=== PATIENT | female | born 1985 | race African-American/Black ===

== ENCOUNTER 2019-09-27 00:17 | Emergency (ER) | payer OTHER ==
[2019-09-27 00:40] LABS: Bacteria/HPF 1+ HPF (None Seen); Bilirubin Negative (Negative); Blood, Urine 1+ (Negative); Clarity Clear (Clear); Glucose, Urine (Dipstick) Normal (Negative); Leukocyte 75 Leu/uL (Negative); Nitrite Negative (Negative); Protein, Urine (Dipstick) 20 mg/dL (Neg-Trace)
[2019-09-27 01:10] LABS: #Basophils 0.1 thou/uL (0.0-0.2); #Eosinphils 0.8 thou/uL (0.0-0.7); #Lymphocytes 2.5 thou/uL (1.20-3.40); #Neutrophils 6.1 thou/uL (1.40-6.50); %Basophils 1.1 % (0.0-1.0); %Eosinophils 7.7 % (0.0-10.0); %Lymphocytes 23.5 % (21.0-51.0); %Monocytes 9.7 % (0.0-10.0); Mean Corpuscular HGB CONC 34.2 g/dL (32.0-36.0); Mean Corpuscular Hemoglobin 29.7 pg (27.0-31.0); Mean Corpuscular Volume 86.8 fL (78.0-98.0); Mean Platelet Volume 8.4 fL (7.4-10.4); Platelet Count 256 thou/uL (130-400); RBC Distribution Width 11.3 % (11.5-14.5); Red Blood Cell (RBC) Count 4.39 mill/uL (4.20-5.40); White Blood Cell (WBC) Count 10.5 thou/uL (4.8-10.8)
[2019-09-27 01:22] LABS: ALT (SGPT) 13 U/L (8-55); AST (SGOT) 17 U/L (5-34); Albumin 4.4 g/dL (3.5-5.0); Alkaline Phosphatase 74 U/L (40-110); Anion Gap 12 mmol/L (10-20); BUN (Urea Nitrogen) 12 mg/dL (7.0-18.7); Bilirubin, Total 0.7 mg/dL (0.2-1.2); Calc. Creatinine Clearance 0 mL/min (70-130); Calcium 9.4 mg/dL (7.8-10.44); Carbon Dioxide 25 mmol/L (22-29); Chloride 108 mmol/L (98-107); Estimated GFR-MDRD 82; Globulin 3.2 g/dL (2.4-3.5); Glucose 106 mg/dL (70-105); Potassium 3.6 mmol/L (3.5-5.1); Protein, Total 7.6 g/dL (6.0-8.3); Sodium 141 mmol/L (136-145)
[2019-09-27 01:35] LABS: Pregnancy Test - Urine (BHCG) Negative (Negative); Pregu Control Background? CLEAR/WHITE (CLR/WHITE); Pregu Control Bar Appear? YES (CONTROL BAR); Specific Gravity 1.028 (1.002-1.036)
[2019-09-27] MEDS ORDERED: Ondansetron PF 4 MG/2 ML Vial ONE (01:49)
[2019-09-27] MEDS ORDERED: Ketorolac Tromethamine 30 MG/ML VIAL ONE (01:49)
--- NOTE | 2019-09-27 08:39 | CT ---
PRELIMINARY REPORT/[facility]/EMERGENCY AFTER HOURS PROCEDURE: Receipt of this report by the clinical staff was confirmed with Jessica Garcia RN by Jannet Boswell on Sep 27, 2019 02:22:00 BUSINESS INTELLIGENCE ENGINEER. Addendum electronically signed by Edita Boswell on September 27, 2019 2:22:54 AM BUSINESS INTELLIGENCE ENGINEER EXAM: CT STONE PROTOCOL HISTORY: RLQ PAIN/R FLANK PAIN COMPARISON: None FINDINGS: The lung bases are clear, without pleural effusion. 5 mm stone within the distal right ureter, with corresponding mild-moderate hydroureteronephrosis, ip silateral renal enlargement/edema and perinephric inflammatory change. Additional nonobstructive punctate nephroliths within the right kidney. No evidence of left-sided renal or ureteral stone, or sequelae. No bowel obstruction. The appendix is normal. No acute abnormality at the unopacified liver, gallbladder, spleen or pancreas. Bilateral Essure devices. No acute osseous abnormality. IMPRESSION: 5 mm right-sided distal ureteral stone, with corresponding upstream hydroureteronephrosis, perinephri c inflammatory change and edema here ELECTRONICALLY SIGNED BY: Anthony Petersen MD Sep 27, 2019 2:20:43 AM BUSINESS INTELLIGENCE ENGINEER This report is intended for review by the ordering physician only, in accordance of law. If you recei ve this report in error, please call [facility] at [phone]. FINAL REPORT CT ABDOMEN AND PELVIS: There is right hydronephrosis. Tiny nonobstructing calculi in the upper collecting structures of the right kidney. Ureters are difficult to delineate distally due to lack of surrounding fat planes. There is a calculu s in the right pelvis which appears to reside in the distal right ureter. I am in agreement with the preliminary report issued by [facility]. POS: [facility]
== END 2019-09-27 02:50 | disposition home or self-care (01) ==
LOC: ERS 00:17
DX: N13.2 Hydronephrosis with renal and ureteral calculous obstruction (principal); G43.909 Migraine, unspecified, not intractable, without status migrainosus
CPT/HCPCS: 36415; 74176; 80053; 81003; 81015; 81025; 85025; 96374; 96375; J1885; J2405